=== PATIENT | female | born 1985 ===

== ENCOUNTER 2016-06-17 17:25 | Inpatient (IN) | payer OTHER ==
[2016-06-17 17:25] VITALS: BMI 21.9
[2016-06-17] MEDS ORDERED: Sodium Chloride 0.9% 1,000 ML IV ONE (18:13)
[2016-06-17] MEDS ORDERED: Aspirin 325 mg EC Tablets PO STA (18:13)
--- NOTE | 2016-06-17 18:18 | C.PDOC ---
History Of Present Illness <RahatMarjan L - Last Filed: 06/17/16 19:11> <Latisha Ayala E - Last Filed: 06/17/16 21:57> Patient is a 31 year old female who presents to the ER with a complaint of chest pain since yesterday. Chest pain is described as tightness and worsens with deep breathing. Patient states she took ibuprofen yesterday with no improvement. Patient reports she has had similar episodes in the past. She reports her primary physician Dr. Wharton, referred her to life enrichment specialist Dr Escamilla, who scheduled an echo and stress test this Monday 06/19. Denies fever, cough, sputum, nausea, vomiting, abdominal pain, weakness, or numbness. (Marjan Giang) History Per: Patient History/Exam Limitations: no limitations Onset/Duration Of Symptoms: Days (Yesterday) Current Symptoms Are (Timing): Still Present Quality: Tightness, Pressure Associated Symptoms: Dyspnea. denies: Nausea Exacerbating Factors: Deep Breathing <Marjan Giang - Last Filed: 06/17/16 19:11> <Latisha Ayala E - Last Filed: 06/17/16 21:57> Time Seen by Provider: 06/17/16 18:07 Chief Complaint (Nursing): Chest Pain Past Medical History Reviewed: Historical Data, Nursing Documentation, Vital Signs - Medical History PMH: Anemia Other PMH: Left Kidney cyst Surgical History: Endoscopy Family History: States: No Known Family Hx Denies: IA, CAD - Social History Hx Tobacco Use: No Hx Alcohol Use: Yes (DRINKS EVERY WEEKEND BEER & WINE) Hx Substance Use: No - Immunization History Hx Tetanus Toxoid Vaccination: No Hx Influenza Vaccination: Yes Hx Pneumococcal Vaccination: No <Marjan Giang - Last Filed: 06/17/16 19:11> Vital Signs: Last Vital Signs Temp 98.1 F 06/17/16 21:53 Pulse 64 06/17/16 21:53 Resp 16 06/17/16 21:53 BP 123/54 L 06/17/16 21:53 Pulse Ox 96 06/17/16 21:53 Review Of Systems Constitutional: Negative for: Fever, Chills, Weakness, Malaise Cardiovascular: Positive for: Chest Pain (tightness). Negative for: Palpitations Respiratory: Positive for: Pleuritic Pain Gastrointestinal: Negative for: Nausea, Vomiting, Abdominal Pain Genitourinary: Negative for: Dysuria, Vaginal Bleeding Musculoskeletal: Negative for: Neck Pain Neurological: Negative for: Weakness, Numbness, Headache, Dizziness <RahatTejMarjan L - Last Filed: 06/17/16 19:11> Physical Exam - Physical Exam Appears: Non-toxic, No Acute Distress Skin: Warm, Dry, No Diaphoretic, No Pale Head: Atraumatic, Normacephalic Eye(s): bilateral: Normal Inspection Nose: Normal Oral Mucosa: Moist Neck: Normal ROM Chest: Symmetrical, No Deformity, No Tenderness Cardiovascular: Rhythm Regular, No Murmur Respiratory: No Decreased Breath Sounds, No Accessory Muscle Use, No Rales, No Rhonchi, No Wheezing, No Plerual Rub Gastrointestinal/Abdominal: Bowel Sounds, Soft, No Tenderness, No Distention, No Guarding Back: Normal Inspection, No CVA Tenderness, No Vertebral Tenderness, No Decreased ROM, No Paraspinal Tenderness Extremity: Bilateral: Atraumatic, No Pedal Edema, Normal Color And Temperature, Normal ROM Neurological/Psych: Oriented x3, Normal Speech Gait: Steady <Marjan Giang Antione - Last Filed: 06/17/16 19:11> ED Course And Treatment ECG: Interpreted By Me, Viewed By Me ECG Rhythm: Sinus Rhythm ECG Interpretation: No Acute Changes Rate From EC O2 Sat by Pulse Oximetry: 100 (Room air) Pulse Ox Interpretation: Normal <Marjan Giang - Last Filed: 06/17/16 19:11> - Laboratory Results Result Diagrams: 06/17/16 20:11 06/17/16 20:11 Interpretation Of Abnormal: Mild anemia. Urine POC: Negative Progress Note: Pt was signed out to me at 7pm by Dr. Peraza/ELIGIO Giang to f/ up labs. Reassessment Condition: Improved - Physician Consult Information Physician Contacted: Davy Escamilla (Cardio) Outcome Of Conversation: He wants pt to be admitted for observation and further evaluation. <Latisha Ayala E - Last Filed: 06/17/16 21:57> Medical Decision Making <Marjan Giang - Last Filed: 06/17/16 19:11> <Latisha Ayala E - Last Filed: 06/17/16 21:57> Medical Decision Making: Impression: 31 year old female with chest pain Plan: * EKG * Blood work * CXR * Ecotrin * IV fluids Progress: EKG shows NS at 60bpm with normal axis and no ST-T changes. CXR shows no focal consolidation, significant pleural effusion, or definite pneumothorax identified. [address] Case signed out to Dr Ayala pending labs, re-eval and dispo (Marjan Giang) Disposition - Disposition Disposition Time: 19:11 <Marjan Giang - Last Filed: 06/17/16 19:11> Discussed With .: Rui Wharton Comment: He accepted pt on his service. Doctor Will See Patient In The: Hospital Counseled Patient/Family Regarding: Studies Performed, Diagnosis - Disposition Disposition Time: :57 <Latisha Ayala - Last Filed: 06/17/16 21:57> - Disposition Disposition: HOSPITALIZED Condition: STABLE - Clinical Impression Clinical Impression: Chest pain - Scribe Statement The provider has reviewed the documentation as recorded by the Scribe <Marjan Giang - Last Filed: 06/17/16 19:11> <Latisha Ayala - Last Filed: 06/17/16 21:57> - Scribe Statement Nadeem Heard All medical record entries made by the Scribe were at my direction and personally dictated by me. I have reviewed the chart and agree that the record accurately reflects my personal performance of the history, physical exam, medical decision making, and the department course for this patient. I have also personally directed, reviewed, and agree with the discharge instructions and disposition. (Marjan Giang) Physician Patient Turnover Patient Signed Over To: Latisha Ayala Handoff Comments: pending labs, re-eval and dispo <Marjan Giang - Last Filed: 06/17/16 19:11>
--- NOTE | 2016-06-17 18:48 | RAD ---
HISTORY: chest pain COMPARISON: Chest x-ray performed 11/24/14 TECHNIQUE: Chest PA and lateral FINDINGS: LUNGS: No focal consolidation. Please note that chest x-ray has limited sensitivity for the detection of pulmonary masses. PLEURA: No significant pleural effusion identified. No definite pneumothorax . CARDIOVASCULAR: The cardiomediastinal silhouette appears within normal limits of size. OSSEOUS STRUCTURES: No acute osseous abnormality identified. VISUALIZED UPPER ABDOMEN: Unremarkable. OTHER FINDINGS: None. IMPRESSION: No focal consolidation, significant pleural effusion, or definite pneumothorax identified.
[2016-06-17] MEDS ORDERED: Sodium Chloride 0.9% 1,000 ML ONE (18:51)
[2016-06-17 20:24] LABS: BASO % 0.4 % (0.0-2.0); EOS # 0.1 K/uL (0.0-0.7); EOS % 0.6 % (0.0-4.0); HEMATOCRIT 31.8 % (34.0-47.0); LYMPH # 2.2 K/uL (1.0-4.3); MEAN CORPUSCULAR HEMOGLOBIN 20.4 pg (27.0-31.0); MEAN CORPUSCULAR HGB CONC 30.5 g/dL (33.0-37.0); MEAN PLATELET VOLUME 11.5 fL (7.2-11.7); MONO # 0.6 K/uL (0.0-0.8); MONO % 6.8 % (0.0-10.0); RED CELL DISTRIBUTION WIDTH 17.6 % (11.5-14.5)
[2016-06-17 20:38] LABS: CHLORIDE 101 mmol/L (98-107); POTASSIUM 3.6 mmol/L (3.6-5.2); SODIUM 139 mmol/L (132-148)
[2016-06-17 20:40] LABS: GFR AFRICAN-AMERICAN > 60
[2016-06-17 20:41] LABS: ALB/GLOB RATIO 1.6 (1.0-2.1); ALKALINE PHOSPHATASE 56 U/L (38-126); ALT/SGPT 20 U/L (9-52); AST/SGOT 24 U/L (14-36); BILIRUBIN,TOTAL 0.2 mg/dL (0.2-1.3); BLOOD UREA NITROGEN 15 mg/dL (7-17); CALCIUM 8.6 mg/dl (8.6-10.4); CARBON DIOXIDE 23 mmol/L (22-30); GLUCOSE,RANDOM 88 mg/dL (65-105); TOTAL PROTEIN 7.7 g/dL (6.3-8.3)
[2016-06-17 20:46] LABS: WHITE BLOOD COUNT 9.4 K/uL (4.8-10.8)
[2016-06-17 20:50] LABS: PARTIAL THROMBOPLASTIN TIME 33 SECONDS (21-34)
[2016-06-17 20:57] LABS: RBC URINE < 1 /hpf (0-3); URINE BACTERIA OCC (<OCC); URINE BILIRUBIN NEGATIVE (NEGATIVE); URINE BLOOD NEGATIVE (NEGATIVE); URINE COLOR Colorless (YELLOW); URINE GLUCOSE (UA) NORMAL (Normal); URINE KETONE NEGATIVE (NEGATIVE); URINE LEUKOCYTE ESTERASE NEG Leu/uL (Negative); URINE PROTEIN NEGATIVE (NEGATIVE); URINE UROBILINOGEN NORMAL mg/dL (0.2-1.0); WBC URINE < 1 /hpf (0-5)
[2016-06-17] MEDS: Lactated Ringer's 1,000 ML IV SCH (22:38)
[2016-06-18] MEDS ORDERED: Ferric Sodium Gluconat Complex 62.5 mg/5 ml Vial IVPB SCH ×3 (01:55→21:45)
[2016-06-18] MEDS: Lactated Ringer's 1,000 ML IV SCH ×2 (11:19→20:35)
[2016-06-18] MEDS: Ferric Sodium Gluconat Complex 62.5 mg/5 ml Vial IVPB SCH (11:37)
--- NOTE | 2016-06-18 23:22 | CP.PCM.CON ---
History of Present Illness - History of Present Illness History of Present Illness: Admitted with chest pain For stress test in am Past Patient History - Infectious Disease Hx of Infectious Diseases: None - Tetanus Immunizations Tetanus Immunization: Unknown - Past Medical History & Family History Past Medical History?: Yes - Past Social History Smoking Status: Never Smoked - CARDIAC Hx Cardiac Disorders: No Hx Pacemaker: No - PULMONARY Hx Respiratory Disorders: No - NEUROLOGICAL Hx Neurological Disorder: No Hx Paralysis: No - HEENT Hx HEENT Problems: No Other/Comment: Had Strabismus and had surgery @ 2 years - RENAL Hx Chronic Kidney Disease: No Other/Comment: Hx of 1 cyst in the L kidney - ENDOCRINE/METABOLIC Hx Endocrine Disorders: No - HEMATOLOGICAL/ONCOLOGICAL Hx Blood Disorders: Yes Hx Anemia: Yes - INTEGUMENTARY Hx Dermatological Problems: No - MUSCULOSKELETAL/RHEUMATOLOGICAL Hx Musculoskeletal Disorders: Yes Hx Falls: No Other/Comment: BACKPAIN - GASTROINTESTINAL Hx Gastrointestinal Disorders: Yes Hx Constipation: Yes Hx Gastritis: Yes - GENITOURINARY/GYNECOLOGICAL Hx Genitourinary Disorders: Yes Other/Comment: ovarian cyst - PSYCHIATRIC Hx Psychophysiologic Disorder: No Hx Substance Use: No - SURGICAL HISTORY Hx Surgeries: Yes (ENDOSCOPY, EYE SURGERY) Other/Comment: EYE SURGERY WHEN SHE WAS A BABY - ANESTHESIA Hx Anesthesia: Yes Hx Anesthesia Reactions: No Hx Malignant Hyperthermia: No Has any member of the family had a problem w/ anesthesia?: No Meds Allergies/Adverse Reactions: Allergies Allergy/AdvReac Type Severity Reaction Status Date / Time No Known Allergies Allergy Verified 06/17/16 17:34 - Medications Medications: Current Medications Acetaminophen (Tylenol 325mg Tab) 650 mg PO Q6 PRN PRN Reason: headache Last Admin: 06/18/16 20:48 Dose: 650 mg Aspirin (Aspirin Chewable) 81 mg PO DAILY [facility] Last Admin: 06/18/16 11:11 Dose: 81 mg Ferric Sodium Gluconate Complex (Ferrlecit) 125 mg IVPB DAILY [facility] Stop: 06/26/16 10:01 Last Admin: 06/18/16 11:37 Dose: 125 mg Lactated Ringer's (Lactated Ringer's) 1,000 mls @ 100 mls/hr IV .Q10H [facility] Last Admin: 06/18/16 20:35 Dose: Not Given Pantoprazole Sodium (Protonix Inj) 40 mg IVP DAILY [facility] Last Admin: 06/18/16 11:11 Dose: 40 mg Pneumococcal Polyvalent Vaccine (Pneumovax 23 Vaccine) 0.5 ml IM .ONCE ONE Stop: 06/20/16 14:01 Results - Vital Signs Recent Vital Signs: Last Vital Signs Temp 98.4 F 06/18/16 15:14 Pulse 73 06/18/16 15:14 Resp 20 06/18/16 15:14 BP 112/65 06/18/16 15:14 Pulse Ox 100 06/18/16 15:14 - Labs Result Diagrams: 06/17/16 20:11 06/17/16 20:11
[2016-06-19] MEDS: Lactated Ringer's 1,000 ML IV SCH (00:10)
[2016-06-19 06:31] LABS: BASO % 0.8 % (0.0-2.0); EOS # 0.1 K/uL (0.0-0.7); EOS % 2.2 % (0.0-4.0); LYMPH # 2.4 K/uL (1.0-4.3); LYMPH % 45.2 % (20.0-40.0); MEAN CELL VOLUME 66.5 fL (81.0-99.0); MEAN CORPUSCULAR HEMOGLOBIN 20.2 pg (27.0-31.0); MEAN CORPUSCULAR HGB CONC 30.3 g/dL (33.0-37.0); MEAN PLATELET VOLUME 11.5 fL (7.2-11.7); MONO # 0.5 K/uL (0.0-0.8); RED CELL DISTRIBUTION WIDTH 17.8 % (11.5-14.5); WHITE BLOOD COUNT 5.3 K/uL (4.8-10.8)
[2016-06-19 06:42] LABS: CHLORIDE 102 mmol/L (98-107); POTASSIUM 3.8 mmol/L (3.6-5.2); SODIUM 135 mmol/L (132-148)
[2016-06-19 06:44] LABS: GFR AFRICAN-AMERICAN > 60
[2016-06-19 06:45] LABS: ALB/GLOB RATIO 1.3 (1.0-2.1); ALKALINE PHOSPHATASE 47 U/L (38-126); ALT/SGPT 18 U/L (9-52); AST/SGOT 16 U/L (14-36); BILIRUBIN,TOTAL 0.4 mg/dL (0.2-1.3); BLOOD UREA NITROGEN 11 mg/dL (7-17); CARBON DIOXIDE 24 mmol/L (22-30); GLUCOSE,RANDOM 91 mg/dL (65-105); TOTAL PROTEIN 6.3 g/dL (6.3-8.3)
[2016-06-19 06:46] LABS: CALCIUM 7.8 mg/dl (8.6-10.4)
--- NOTE | 2016-06-19 09:53 | CP.PCM.HP ---
History of Present Illness - History of Present Illness History of Present Illness: Chief complaint: Chest pain History present illness: 31-year-old female with a history of anemia, fibromyalgia came to the office with increasing chest pain. Patient came to the emergency room because of the worsening pain. Initial evaluation was negative, because of the chest pain, it was decided to admit the patient. Patient also has a pain over the left side of the chest, radiating to the back as well as the left upper extremities. Also associated with the some sweating and palpitation. She did not have any nausea vomiting. Present on Admission - Present on Admission Any Indicators Present on Admission: No History of DVT/PE: No History of Uncontrolled Diabetes: No Urinary Catheter: No Decubitus Ulcer Present: No Review of Systems - Review of Systems All systems: reviewed and no additional remarkable complaints except Review of Systems: Patient currently having increasing chest discomfort. Radiating to the left chest. No sweating. Associate with the no nausea vomiting. Denies any headache Past Patient History - Infectious Disease Hx of Infectious Diseases: None - Tetanus Immunizations Tetanus Immunization: Unknown - Past Medical History & Family History Past Medical History?: Yes - Past Social History Smoking Status: Never Smoked - CARDIAC Hx Cardiac Disorders: No Hx Pacemaker: No - PULMONARY Hx Respiratory Disorders: No - NEUROLOGICAL Hx Neurological Disorder: No Hx Paralysis: No - HEENT Hx HEENT Problems: No Other/Comment: Had Strabismus and had surgery @ 2 years - RENAL Hx Chronic Kidney Disease: No Other/Comment: Hx of 1 cyst in the L kidney - ENDOCRINE/METABOLIC Hx Endocrine Disorders: No - HEMATOLOGICAL/ONCOLOGICAL Hx Blood Disorders: Yes Hx Anemia: Yes - INTEGUMENTARY Hx Dermatological Problems: No - MUSCULOSKELETAL/RHEUMATOLOGICAL Hx Musculoskeletal Disorders: Yes Hx Falls: No Other/Comment: BACKPAIN - GASTROINTESTINAL Hx Gastrointestinal Disorders: Yes Hx Constipation: Yes Hx Gastritis: Yes - GENITOURINARY/GYNECOLOGICAL Hx Genitourinary Disorders: Yes Other/Comment: ovarian cyst - PSYCHIATRIC Hx Psychophysiologic Disorder: No Hx Substance Use: No - SURGICAL HISTORY Hx Surgeries: Yes (ENDOSCOPY, EYE SURGERY) Other/Comment: EYE SURGERY WHEN SHE WAS A BABY - ANESTHESIA Hx Anesthesia: Yes Hx Anesthesia Reactions: No Hx Malignant Hyperthermia: No Has any member of the family had a problem w/ anesthesia?: No Meds Allergies/Adverse Reactions: Allergies Allergy/AdvReac Type Severity Reaction Status Date / Time No Known Allergies Allergy Verified 06/17/16 17:34 Results - Vital Signs Recent Vital Signs: Last Vital Signs Temp 98.2 F 06/19/16 07:00 Pulse 59 L 06/19/16 07:45 Resp 18 06/19/16 07:00 BP 107/65 06/19/16 07:00 Pulse Ox 99 06/19/16 07:00 - Labs Result Diagrams: 06/19/16 21:36 06/19/16 06:21 Labs: Laboratory Results - last 24 hr 06/19/16 06:21 WBC 5.3 RBC 4.36 Hgb 8.8 L Hct 29.0 L MCV 66.5 L MCH 20.2 L MCHC 30.3 L RDW 17.8 H Plt Count 187 MPV 11.5 Neut % (Auto) 41.8 L Lymph % (Auto) 45.2 H [place] % (Auto) 10.0 Eos % (Auto) 2.2 Baso % (Auto) 0.8 Neut # 2.2 Lymph # 2.4 [place] # 0.5 Eos # 0.1 Baso # 0.0 Sodium 135 Potassium 3.8 Chloride 102 Carbon Dioxide 24 Anion Gap 14 BUN 11 Creatinine 0.6 L Est GFR ( Amer) > 60 Est GFR (Non-Af Amer) > 60 Random Glucose 91 Calcium 7.8 L Total Bilirubin 0.4 AST 16 ALT 18 Alkaline Phosphatase 47 Total Protein 6.3 Albumin 3.6 Globulin 2.7 Albumin/Globulin Ratio 1.3 Assessment & Plan (1) Anemia Assessment and Plan: 31-year-old female with history of anemia now admitted to the hospital with ongoing chest pain. Most likely pleuritic and musculoskeletal in origin. Given the anemia, family history unclear chest pain. I suggested the patient to stay in the hospital, monitor the cardiac enzymes. We will get the cardiology evaluation. We'll treat the anemia most likely with the iron infusion. Severe anemia most likely secondary to iron deficiency. We'll follow the patient Status: Acute (2) Chest pain Status: Acute
[2016-06-19] MEDS: Ferric Sodium Gluconat Complex 62.5 mg/5 ml Vial IVPB SCH ×2 (10:00→13:04)
--- NOTE | 2016-06-19 12:42 | CARD ---
APPROVED REPORT EXAM: Two-dimensional and M-mode echocardiogram with Doppler and color Doppler. Other Information Quality : GoodRhythm : INDICATION Chest Pain M-Mode DIMENSIONS RVDd1.54 (2.1-3.2cm)Left Atrium (MM)3.15 (2.5-4.0cm) IVSd0.78 (0.7-1.1cm)Aortic Root2.71 (2.2-3.7cm) LVDd5.05 (4.0-5.6cm)Aortic Cusp Exc.1.51 (1.5-2.0cm) PWd0.89 (0.7-1.1cm)FS (%) 39 % LVDs3.10 (2.0-3.8cm)LVEF (%)69 (>50%) Mitral Valve MV E Akjekraz76.9cm/sMV A Heekjbpx22.9cm/sE/A ratio1.2 TDI E/Lateral E'0.0E/Medial E'0.0 Tricuspid Valve TR Peak [id number]/sTR Peak Gr.[id number] LEFT VENTRICLE The left ventricle is normal size. There is normal left ventricular wall thickness. The left ventricular function is normal. The left ventricular ejection fraction is within the normal range. There is normal LV segmental wall motion. The left ventricular diastolic function is normal. No left ventricle thrombus noted on this study. There is no ventricular septal defect visualized. There is no left ventricular aneurysm. There is no mass noted in the left ventricle. RIGHT VENTRICLE The right ventricle is normal size. There is normal right ventricular wall thickness. The right ventricular systolic function is normal. ATRIA The left atrium size is normal. The right atrium size is normal. AORTIC VALVE The aortic valve is normal in structure. No aortic regurgitation is present. There is no aortic valvular stenosis. There is no aortic valvular vegetation. MITRAL VALVE The mitral valve is normal in structure. There is no mitral valve stenosis. There is no mitral valve regurgitation noted. TRICUSPID VALVE The tricuspid valve is normal in structure. There is no tricuspid valve regurgitation noted. PULMONIC VALVE The pulmonary valve is normal in structure. There is no pulmonic valvular regurgitation. GREAT VESSELS The aortic root is normal in size. The ascending aorta is normal in size. The pulmonary artery is normal. The IVC is normal in size and collapses >50% with inspiration. PERICARDIAL EFFUSION There is no pericardial effusion. <Conclusion> NORMAL STUDY. LVEF IS 70%.
[2016-06-19] MEDS ORDERED: Tramadol 25 mg PO ONE ×2 (13:35)
[2016-06-19 17:21] VITALS: PULSE 74; RESP 20
--- NOTE | 2016-06-19 18:19 | CP.PCM.PN ---
Subjective - Date & Time of Evaluation Date of Evaluation: 06/19/16 Time of Evaluation: 18:16 - Subjective Subjective: Patient s/p Exercise Nuclear Stress test Stress Test Result: Normal with Normal EF ECHO: Normal study Conclusion: Non cardiac chest pain. Medical management Objective - Vital Signs/Intake and Output Vital Signs (last 24 hours): Temp Pulse Resp BP Pulse Ox 98.1 F 74 20 103/62 98 06/19/16 15:06 06/19/16 15:06 06/19/16 15:06 06/19/16 15:06 06/19/16 15:06 Intake and Output: 06/19/16 06/19/16 06:59 18:59 Intake Total 1710 200 Balance 1710 200 - Medications Medications: Current Medications Acetaminophen (Tylenol 325mg Tab) 650 mg PO Q6 PRN PRN Reason: headache Last Admin: 06/19/16 16:09 Dose: 650 mg Aspirin (Aspirin Chewable) 81 mg PO DAILY [facility] Last Admin: 06/19/16 13:57 Dose: 81 mg Ferric Sodium Gluconate Complex (Ferrlecit) 125 mg IVPB DAILY [facility] Stop: 06/26/16 10:01 Last Admin: 06/19/16 13:04 Dose: 125 mg Pantoprazole Sodium (Protonix Inj) 40 mg IVP DAILY [facility] Last Admin: 06/19/16 13:06 Dose: 40 mg Pneumococcal Polyvalent Vaccine (Pneumovax 23 Vaccine) 0.5 ml IM .ONCE ONE Stop: 06/20/16 14:01 - Labs Labs: 06/19/16 06:21 06/19/16 06:21 PT 11.2 SECONDS (9.7-12.2) 06/17/16 20:11 INR 1.0 06/17/16 20:11 APTT 33 SECONDS (21-34) 06/17/16 20:11
[2016-06-19 21:39] LABS: BASO # 0.1 K/uL (0.0-0.2); BASO % 0.9 % (0.0-2.0); EOS # 0.1 K/uL (0.0-0.7); EOS % 1.4 % (0.0-4.0); HEMATOCRIT 30.9 % (34.0-47.0); LYMPH # 2.5 K/uL (1.0-4.3); LYMPH % 38.5 % (20.0-40.0); MEAN CELL VOLUME 66.6 fL (81.0-99.0); MEAN CORPUSCULAR HEMOGLOBIN 20.3 pg (27.0-31.0); MEAN CORPUSCULAR HGB CONC 30.4 g/dL (33.0-37.0); MEAN PLATELET VOLUME 10.2 fL (7.2-11.7); MONO # 0.7 K/uL (0.0-0.8); MONO % 10.2 % (0.0-10.0); NRBC % 0.1 % (0.0-2.0); RED CELL DISTRIBUTION WIDTH 17.7 % (11.5-14.5); WHITE BLOOD COUNT 6.5 K/uL (4.8-10.8)
[2016-06-20 08:56] VITALS: BP 109/66; TEMP 98.5; O2SAT 98
[2016-06-20] MEDS: Ferric Sodium Gluconat Complex 62.5 mg/5 ml Vial IVPB SCH (09:44)
[2016-06-20] MEDS ORDERED: Pneumococcal 23-Valent Vaccine IM ONE (14:00)
--- NOTE | 2016-06-22 22:33 | CARD ---
APPROVED REPORT Protocol: NNAMDI Test Type: Stress Nuclear Test Indications: CHEST PAIN Medications: lis scan Medical History: CHEST PAIN Target HR: 189 bpm Resting ECG: normal Resting Heart Rate: 82 bpm Resting Blood Pressure: 110/60mmHg submaximum (85%): 161 bpm TEST SUMMARY [id number]:020.00.01.0./.0. PRETESTWARM-UP13:[id number]/60.0. EXERCISESTAGE 101:[id number]/60.0. EXERCISESTAGE 201:132.512.07.0104/.0. EXERCISESTAGE 303:[id number]/60.0. EXERCISESTAGE 402:[id number]/60.0. WHPUTSHY58:[id number]/60.0. POST EXERCISE Reason for Termination: Target heart rate achieved Target HR: No Max HR: 151 bpm 80% of Maximum Predicted HR: 189 bpm Exercise duration: 08:15 min:sec, 4 Stage Exercise capacity: 13.4METs Max Blood Pressure: 150/60mmHg Blood Pressure response to exercise: normal resting BP - appropriate response Heart Rate response to exercise: appropriate Chest Pain: No, none Angina index: 0 Arrhythmia: No, none ST Change: No, none Deviation: 0 mm INTERPRETATION Stress EKG Conclusion: Nuclear reports to follow EXAM: Myocardial Perfusion REST/STRESS Imaging Protocol The imaging protocol used to acquire images was Rest Tc-99m/stress Tc-99m 1 day Rest Spect myocardial perfusion imaging was performed in supine position 45 minutes following the injection of 12.9 mCi of Tc-99 Myoview. Gated Stress Spect was performed 45 minutes after intravenous 32.5 mCi Tc-99 Myoview injection. The images were gated to evaluate regional wall motion and calculate ventricular ejection fraction.Images were reconstructed using backfilter projection method in short horizontal and verticle long axis. Spect slices were generated. RESTING DATA EDV92.00mxNY8.70L/min ESV31.00mlMyocardial Emyy711.00g Av. Heart Rate61.00bpm EF66.00% STRESS DATA EDV93.89dlPO6.60L/min ESV29.00mlMyocardial Jqce191.00g EF69.00% Regional WT score at stress:0.00 Regional WM score at stress:0.00 Summed WT score at stress:0.00 Av. Heart Rate71.00bpmSummed WM score at stress:0.00 LV Perf. Quant 17 Seg. SSS0.00 17 Seg. SRS0.00 17 Seg. SDS0.00 Stress Defect Extent (% LAD)0.00Rest Defect Extent (% LAD)0.00Rev. Defect Extent (% LAD)0.00 Stress Defect Extent (% LCX)0.00Rest Defect Extent (% LCX)0.00Rev. Defect Extent (% LCX)0.00 Stress Defect Extent (% RCA)0.00Rest Defect Extent (% RCA)0.00Rev. Defect Extent (% RCA)0.00 Stress Defect Extent (% AKHIL)0.00Rest Defect Extent (% AKHIL)0.00Rev. Defect Extent (% AKHIL)0.00 Other Information Quality:Good Overall Exercise Capacity: Excellent IMPRESSION Normal Myocardial Perfusion exercise stress study Left Ventricle LV Size/Shape: The left ventricle is normal size. LV Function:Left ventricle systolic function is normal. The Ejection Fraction is 65-70%. Metabolism/Perfusion There are no defects. Conclusion 1. Normal exercise nuclear stress test
--- NOTE | 2016-06-29 23:25 | CARD ---
APPROVED REPORT EKG Measurement Heart [id number] IL 138P61 [id number] <Conclusion> Normal sinus rhythm with sinus arrhythmia Normal ECG
--- NOTE | 2016-07-20 11:32 | CP.PCM.PN ---
Subjective - Date & Time of Evaluation Date of Evaluation: 06/19/16 Time of Evaluation: 11:32 - Subjective Subjective: Patient is still having chest pain. Underwent a stress test. Spoke to the hydrodynamicist. Final testis is pending Platelet stable otherwise. Objective - Vital Signs/Intake and Output Vital Signs (last 24 hours): Temp Pulse Resp BP Pulse Ox 98.5 F 74 20 109/66 98 06/20/16 07:00 06/20/16 08:20 06/20/16 07:00 06/20/16 07:00 06/20/16 07:00 Intake and Output: Vital signs reviewed No neck vein distention noted Chest good air entry bilaterally, no wheezing or rales noted CVS regular heart sound, no murmur noted Abdomen soft, nontender. Extremities no pedal edema HAND INSPECTOR alert awake oriented 3, no functional neurological deficit - Labs Labs: 06/19/16 21:36 06/19/16 06:21 PT 11.2 SECONDS (9.7-12.2) 06/17/16 20:11 INR 1.0 06/17/16 20:11 APTT 33 SECONDS (21-34) 06/17/16 20:11 Assessment and Plan (1) Anemia Assessment & Plan: nemia receiving iron infusion. Chest pain most likely nonspecific. follow-up stress test. Status: Acute (2) Chest pain Status: Acute
--- NOTE | 2016-07-20 11:34 | CP.PCM.DIS ---
Provider - Provider Date of Admission: 06/18/16 16:32 Attending physician: Rui Wharton MD Time Spent in preparation of Discharge (in minutes): 45 Diagnosis - Discharge Diagnosis (1) Anemia Status: Acute (2) Chest pain Status: Acute Hospital Course - Lab Results Lab Results: Most Recent Lab Values WBC 6.5 K/uL (4.8-10.8) 06/19/16 21:36 RBC 4.63 Mil/uL (3.80-5.20) 06/19/16 21:36 Hgb 9.4 g/dL (11.0-16.0) L 06/19/16 21:36 Hct 30.9 % (34.0-47.0) L 06/19/16 21:36 MCV 66.6 fL (81.0-99.0) L 06/19/16 21:36 MCH 20.3 pg (27.0-31.0) L 06/19/16 21:36 MCHC 30.4 g/dL (33.0-37.0) L 06/19/16 21:36 RDW 17.7 % (11.5-14.5) H 06/19/16 21:36 Plt Count 194 K/uL (130-400) 06/19/16 21:36 MPV 10.2 fL (7.2-11.7) 06/19/16 21:36 Neut % (Auto) 49.0 % (50.0-75.0) L 06/19/16 21:36 Lymph % (Auto) 38.5 % (20.0-40.0) 06/19/16 21:36 [place] % (Auto) 10.2 % (0.0-10.0) H 06/19/16 21:36 Eos % (Auto) 1.4 % (0.0-4.0) 06/19/16 21:36 Baso % (Auto) 0.9 % (0.0-2.0) 06/19/16 21:36 Neut # 3.2 K/uL (1.8-7.0) 06/19/16 21:36 Lymph # 2.5 K/uL (1.0-4.3) 06/19/16 21:36 [place] # 0.7 K/uL (0.0-0.8) 06/19/16 21:36 Eos # 0.1 K/uL (0.0-0.7) 06/19/16 21:36 Baso # 0.1 K/uL (0.0-0.2) 06/19/16 21:36 PT 11.2 SECONDS (9.7-12.2) 06/17/16 20:11 INR 1.0 06/17/16 20:11 APTT 33 SECONDS (21-34) 06/17/16 20:11 D-Dimer, Quantitative < 200 ng/mlDDU (0-243) 06/17/16 20:11 Sodium 135 mmol/L (132-148) 06/19/16 06:21 Potassium 3.8 mmol/L (3.6-5.2) 06/19/16 06:21 Chloride 102 mmol/L (98-107) 06/19/16 06:21 Carbon Dioxide 24 mmol/L (22-30) 06/19/16 06:21 Anion Gap 14 (10-20) 06/19/16 06:21 BUN 11 mg/dL (7-17) 06/19/16 06:21 Creatinine 0.6 MG/DL (0.7-1.2) L 06/19/16 06:21 Est GFR ( Amer) > 60 06/19/16 06:21 Est GFR (Non-Af Amer) > 60 06/19/16 06:21 Random Glucose 91 mg/dL (65-105) 06/19/16 06:21 Calcium 7.8 mg/dl (8.6-10.4) L 06/19/16 06:21 Total Bilirubin 0.4 mg/dL (0.2-1.3) 06/19/16 06:21 AST 16 U/L (14-36) 06/19/16 06:21 ALT 18 U/L (9-52) 06/19/16 06:21 Alkaline Phosphatase 47 U/L (38-126) 06/19/16 06:21 Total Creatine Kinase 86 U/L (30-135) 06/17/16 20:11 CK-MB (Mass) 0.32 ng/mL (0.0-3.38) 06/17/16 20:11 Troponin I, Quant < 0.0120 ng/mL (0.00-0.120) 06/17/16 20:11 Total Protein 6.3 g/dL (6.3-8.3) 06/19/16 06:21 Albumin 3.6 g/dL (3.5-5.0) 06/19/16 06:21 Globulin 2.7 gm/dL (2.2-3.9) 06/19/16 06:21 Albumin/Globulin Ratio 1.3 (1.0-2.1) 06/19/16 06:21 Urine Color Colorless (YELLOW) 06/17/16 20:11 Urine Clarity Clear (Clear) 06/17/16 20:11 Urine pH 6.0 (5.0-8.0) 06/17/16 20:11 Ur Specific Bertram 1.003 (1.003-1.030) 06/17/16 20:11 Urine Protein Negative mg/dL (NEGATIVE) 06/17/16 20:11 Urine Glucose (UA) Normal mg/dL (Normal) 06/17/16 20:11 Urine Ketones Negative mg/dL (NEGATIVE) 06/17/16 20:11 Urine Blood Negative (NEGATIVE) 06/17/16 20:11 Urine Nitrate Negative (NEGATIVE) 06/17/16 20:11 Urine Bilirubin Negative (NEGATIVE) 06/17/16 20:11 Urine Urobilinogen Normal mg/dL (0.2-1.0) 06/17/16 20:11 Ur Leukocyte Esterase Neg Dalton/uL (Negative) 06/17/16 20:11 Urine WBC (Auto) < 1 /hpf (0-5) 06/17/16 20:11 Urine RBC (Auto) < 1 /hpf (0-3) 06/17/16 20:11 Urine Bacteria Occ (<OCC) H 06/17/16 20:11 Urine HCG, Qual Negative (NEGATIVE) 06/17/16 20:11 - Hospital Course Hospital Course: 31-year-old female with history of anemia admitted to the hospital with the chest pain. Patient had a severe anemia. Ongoing chest pain. Radiated to the left upper extend the. Cardiology evaluation was called. Stress test was done, showing no evidence of any ischemia. Received IV and infusion intravenously. Clinical stable. She will be discharged home, she'll follow-up as an outpatient. Final diagnosis severe anemia iron deficiency most likely Chest pain most likely atypical. Will follow the patient Discharge Plan - Follow Up Plan Condition: STABLE Disposition: HOME/ ROUTINE Instructions: Chest Pain (DC) Additional Instructions: Follow up with your primary Dr. as needed. Referrals: Rui Wharton MD [Staff Provider] -
== END 2016-06-20 12:30 | disposition home or self-care (01) | DRG 313 ==
LOC: C.ER 17:25 → C.9E 21:58 → C.6T 06-18 00:01 → OBSVTOIN 06-18 16:32
PROVIDERS: ADMIT Internal Medicine; ATTEND Internal Medicine
DX: R07.89 Other chest pain (principal); F10.10 Alcohol abuse, uncomplicated; Z87.19 Personal history of other diseases of the digestive system; Z98.890 Other specified postprocedural states; Z87.42 Personal history of other diseases of the female genital tract

== ENCOUNTER 2017-05-18 16:58 | Emergency (ER) | payer OTHER ==
[2017-05-18] MEDS ORDERED: Alum-Mag Hydrox-Simethicone Susp (30 mL) PO STA (17:23)
[2017-05-18 17:24] VITALS: RESP 18; TEMP 98
[2017-05-18 17:51] LABS: BASO % 0.4 % (0.0-2.0); EOS # 0.1 K/uL (0.0-0.7); EOS % 1.4 % (0.0-4.0); HEMOGLOBIN 9.3 g/dL (11.0-16.0); LYMPH # 2.1 K/uL (1.0-4.3); LYMPH % 30.7 % (20.0-40.0); MEAN CELL VOLUME 69.4 fL (81.0-99.0); MEAN CORPUSCULAR HEMOGLOBIN 21.5 pg (27.0-31.0); MEAN PLATELET VOLUME 9.9 fL (7.2-11.7); MONO # 0.5 K/uL (0.0-0.8); MONO % 7.7 % (0.0-10.0); NEUT # 4.2 K/uL (1.8-7.0); NEUT % 59.8 % (50.0-75.0); RBC 4.31 Mil/uL (3.80-5.20); RED CELL DISTRIBUTION WIDTH 17.1 % (11.5-14.5)
[2017-05-18] MEDS ORDERED: Alum-Mag Hydrox-Simethicone Susp (30 mL) ONE (17:55)
[2017-05-18 17:58] LABS: HCG,QUALITATIVE URINE NEGATIVE (NEGATIVE)
[2017-05-18 18:00] LABS: SQUAMOUS EPITHIAL 3 /hpf (0-5); URINE BACTERIA RARE (<OCC); URINE BILIRUBIN NEGATIVE (NEGATIVE); URINE BLOOD NEGATIVE (NEGATIVE); URINE CLARITY Hazy (Clear); URINE COLOR Yellow (YELLOW); URINE GLUCOSE (UA) NORMAL (Normal); URINE LEUKOCYTE ESTERASE NEG Leu/uL (Negative); URINE PROTEIN NEGATIVE (NEGATIVE); URINE UROBILINOGEN NORMAL mg/dL (0.2-1.0)
[2017-05-18 18:09] LABS: ALB/GLOB RATIO 1.3 (1.0-2.1); ALBUMIN 4.2 g/dL (3.5-5.0); ALT/SGPT 18 U/L (9-52); AST/SGOT 16 U/L (14-36); BLOOD UREA NITROGEN 12 mg/dL (7-17); CALCIUM 8.1 mg/dl (8.6-10.4); GFR AFRICAN-AMERICAN > 60; GFR NON-AFRICAN AMERICAN > 60; LIPASE 82 U/L (23-300)
[2017-05-18 18:20] VITALS: BMI 22.4
--- NOTE | 2017-05-18 18:31 | C.PDOC ---
History Of Present Illness 31yo female, with history of anemia and anxiety, presents to ED with complaints of epigastric pain which started 2 days ago. Patient states 4 days ago, she strained her back while at the gym and the next day, she took 2 tabs of Motrin 250mg (?), and two hours later took 2 tabs of Naproxen 500 mg. Then, two hours after that, patient again took 2 tabs of Motrin 250mg (?) and two hours later took 2 tabs of Naproxen 500 mg. For the last two days, patient has been having intermittent epigastric pain; she reports a history of similar episodes 2+ years ago. Patient had an endoscopy with Dr. David in 2016 which showed gastritis. Patient states she took Zantac and Mylanta with transient relief of symptoms. She denies any fever, complaints, vomiting, diarrhea, bloody or dark stools. Time Seen by Provider: 05/18/17 17:11 Chief Complaint (Nursing): Abdominal Pain History Per: Patient History/Exam Limitations: no limitations Onset/Duration Of Symptoms: Days Current Symptoms Are (Timing): Still Present Location Of Pain/Discomfort: Epigastric Associated Symptoms: denies: Nausea, Vomiting Past Medical History Reviewed: Historical Data, Nursing Documentation, Vital Signs Vital Signs: Last Vital Signs Temp 98 F 05/18/17 17:18 Pulse 75 05/18/17 18:44 Resp 18 05/18/17 18:44 BP 132/68 05/18/17 18:44 Pulse Ox 100 05/18/17 20:29 - Medical History PMH: Anemia, Anxiety, Gastritis Denies: Chronic Kidney Disease Surgical History: Endoscopy Denies: Pacemaker Family History: Denies: [place], CAD - Social History Hx Tobacco Use: No Hx Alcohol Use: Yes (Socially) Hx Substance Use: No - Immunization History Hx Tetanus Toxoid Vaccination: No Hx Influenza Vaccination: Yes Hx Pneumococcal Vaccination: No Review Of Systems Except As Marked, All Systems Reviewed And Found Negative. Constitutional: Negative for: Fever, Chills Gastrointestinal: Positive for: Abdominal Pain. Negative for: Nausea, Vomiting , Melena, Hematochezia Physical Exam - Physical Exam Appears: Well, Non-toxic, No Acute Distress Skin: Normal Color Head: Atraumatic, Normacephalic Eye(s): bilateral: Normal Inspection, EOMI Nose: Normal Oral Mucosa: Moist Neck: Normal ROM, Supple Chest: Symmetrical Cardiovascular: Rhythm Regular Respiratory: Normal Breath Sounds Gastrointestinal/Abdominal: Soft, Tenderness (epigastric) Rectal: Other (patient offered rectal exam by Dr. Harper upon her evaluation and patient refused.) Back: No CVA Tenderness, No Vertebral Tenderness Extremity: Normal ROM, No Deformity Neurological/Psych: Oriented x3, Normal Speech, Normal Cognition ED Course And Treatment - Laboratory Results Result Diagrams: 05/18/17 17:48 05/18/17 17:48 O2 Sat by Pulse Oximetry: 100 (RA) Pulse Ox Interpretation: Normal Progress Note: Labs reviewed and within normal limits. Case discussed with Dr. Wharton who recommendsdischarge with protonix. He will follow up with patient in his office in 2 days. Patient was seen and evaluated by Dr. Harper in the ER , agreed upon plan and treatment. Disposition - Disposition Referrals: Rui Wharton MD [Staff Provider] - Cooper David MD [Staff Provider] - Disposition: HOME/ ROUTINE Disposition Time: 18:28 Condition: STABLE Additional Instructions: Follow up with your PMD in 2 days. Return to ER if symptoms persist or worsen. Prescriptions: Pantoprazole Sodium [Protonix] 20 mg PO DAILY #20 ect Instructions: Gastritis Forms: [facility] (Salvadorean) - Clinical Impression Clinical Impression: Gastritis - PA / AQUATICS COORDINATOR / Resident Statement MD/DO has reviewed & agrees with the documentation as recorded. - Scribe Statement The provider has reviewed the documentation as recorded by the Scribe (Kerry Gamez) Provider Attestation: All medical record entries made by the Scribe were at my direction and personally dictated by me. I have reviewed the chart and agree that the record accurately reflects my personal performance of the history, physical exam, medical decision making, and the department course for this patient. I have also personally directed, reviewed, and agree with the discharge instructions and disposition.
[2017-05-18 18:46] VITALS: BP 132/68; PULSE 75
[2017-05-18 20:21] VITALS: O2SAT 100
== END 2017-05-18 18:45 | disposition home or self-care (01) ==
LOC: C.ER 16:58
DX: K29.70 Gastritis, unspecified, without bleeding (principal); D64.9 Anemia, unspecified
CPT/HCPCS: 80053; 81001; 83690; 84703; 85025; 96374; 99284; C9113

== ENCOUNTER 2017-08-26 06:53 | Day surgery (SDC) | payer OTHER ==
[2017-08-06 11:10] VITALS: BMI 22.6
[2017-08-26 07:17] VITALS: O2SAT 100
[2017-08-26] MEDS ORDERED: Iodixanol 320 MG/ML 100 ML BOTTLE IV ONE (07:49)
[2017-08-26] MEDS ORDERED: Propofol 10 mg/ml Inj (20 ML) ONE (08:18)
[2017-08-26] MEDS ORDERED: Lactated Ringer's 500 ML IV ONE (08:30)
[2017-08-26 09:02] VITALS: TEMP 98.9
[2017-08-26 09:34] VITALS: BP 107/63; PULSE 66; RESP 14
== END 2017-08-26 09:45 | disposition home or self-care (01) ==
LOC: C.ENDO 06:53
PROVIDERS: ATTEND Internal Medicine Gastroenterology
DX: R10.13 Epigastric pain (principal); K29.50 Unspecified chronic gastritis without bleeding
CPT/HCPCS: 43239; 84703; 88305; 88313; 88342; J2001; J2704; J3010; J7120; Q9967

== ENCOUNTER 2017-08-30 07:46 | Emergency (ER) | payer OTHER ==
[2017-08-30 07:46] VITALS: BMI 22.6
--- NOTE | 2017-08-30 07:51 | C.PDOC ---
History Of Present Illness The patient reports that she injured the left hand while playing volleyball 2 days ago. The patient reports that she hit the hand against the pole and has been having persistent pain since. Denies other injuries, numbness, weakness, rash. Time Seen by Provider: 08/30/17 07:51 History Per: Patient History/Exam Limitations: no limitations Onset/Duration Of Symptoms: Persistent Current Symptoms Are (Timing): Still Present Quality: "Pain" Severity: Mild Pain Scale Rating Of: 6 Exacerbating Factor(s): Strenuous Use Of Affected Area, Movement Recent travel outside of the [place]: No Past Medical History Reviewed: Historical Data, Nursing Documentation, Vital Signs Vital Signs: Last Vital Signs Temp 98.6 F 08/30/17 07:53 Pulse 76 08/30/17 07:53 Resp 18 08/30/17 07:53 BP 148/90 08/30/17 07:53 Pulse Ox 100 08/30/17 08:43 - Medical History PMH: Anemia, Anxiety, Gastritis Denies: Chronic Kidney Disease Surgical History: Endoscopy Denies: Pacemaker Family History: Denies: [place], CAD - Social History Hx Tobacco Use: No Hx Alcohol Use: Yes (Socially) Hx Substance Use: No - Immunization History Hx Tetanus Toxoid Vaccination: No Hx Influenza Vaccination: Yes Hx Pneumococcal Vaccination: No Review Of Systems Except As Marked, All Systems Reviewed And Found Negative. Physical Exam - Physical Exam Appears: Non-toxic, No Acute Distress Skin: Normal Color, Warm, No Rash Head: Atraumatic, Normacephalic Eye(s): bilateral: Normal Inspection Oral Mucosa: Moist Neck: Normal ROM, Supple Chest: Symmetrical Respiratory: No Accessory Muscle Use Extremity: Capillary Refill (< 2 sec), No Deformity, Other ((+) mild swelling and tenderness to the left lateral 5th metacarpal bones. Able to flex and extend fingers and wrist) Extremity: Bilateral: Normal Color And Temperature Pulses: Left Radial: Normal, Right Radial: Normal Neurological/Psych: Oriented x3, Normal Speech, Normal Motor, Normal Sensation Gait: Steady ED Course And Treatment O2 Sat by Pulse Oximetry: 100 (on RA) Pulse Ox Interpretation: Normal Medical Decision Making Medical Decision Making: The xrays of the hand are negative for fracture or dislocation. Finger splint was applied by it technician and checked by me for support and pain. Disposition - Disposition Referrals: Neha Oshea MD [Staff Provider] - Disposition: HOME/ ROUTINE Disposition Time: 08:38 Condition: STABLE Additional Instructions: Follow up with the Hand doctor withiin 3-5 days if pain continues, Return if worsened Prescriptions: Ibuprofen [Motrin] 600 mg PO TID #21 tab Instructions: Hand Pain Forms: Work Excuse - Clinical Impression Clinical Impression: Hand contusion
[2017-08-30 07:56] VITALS: BP 148/90; PULSE 76; RESP 18; TEMP 98.6; O2SAT 100
--- NOTE | 2017-08-30 10:00 | RAD ---
PROCEDURE: Left Hand Radiographs. HISTORY: PAIN ALONG 5TH METACARPAL COMPARISON: None. FINDINGS: BONES: Bone alignment and mineralization are normal. There is no acute displaced fracture or bone destruction. JOINTS: Normal. SOFT TISSUES: Normal. OTHER FINDINGS: None. IMPRESSION: No acute displaced fracture or dislocation.
== END 2017-08-30 09:13 | disposition home or self-care (01) ==
LOC: C.ER 07:46
DX: S60.222A Contusion of left hand, initial encounter (principal); W22.8XXA Striking against or struck by other objects, initial encounter; Y93.68 Activity, volleyball (beach) (court)

== ENCOUNTER 2017-09-14 12:37 | Emergency (ER) | payer OTHER ==
[2017-09-14 12:38] VITALS: BMI 22.6
[2017-09-14 12:45] VITALS: BP 159/94; PULSE 85; RESP 18; TEMP 97.9; O2SAT 100
--- NOTE | 2017-09-14 12:59 | C.PDOC ---
History Of Present Illness 32 y/o female,employee at [employer], presents to the ER complaining of left hand pain which began after she slipped on a wet floor and fell on her left arm. Patient states that she had a hand injury in the left hand 2 weeks ago and the pain feels worse now. Denies having other injuries, weakness, and numbness. Time Seen by Provider: 09/14/17 12:55 Chief Complaint (Nursing): Upper Extremity Problem/Injury History Per: Patient History/Exam Limitations: no limitations Onset/Duration Of Symptoms: Hrs Current Symptoms Are (Timing): Still Present Severity: Moderate Past Medical History Reviewed: Historical Data, Nursing Documentation, Vital Signs Vital Signs: Last Vital Signs Temp 97.9 F 09/14/17 12:42 Pulse 85 09/14/17 12:42 Resp 18 09/14/17 12:42 BP 159/94 H 09/14/17 12:42 Pulse Ox 100 09/14/17 14:01 - Medical History PMH: Anemia, Anxiety, Gastritis Denies: Chronic Kidney Disease Surgical History: Endoscopy Denies: Pacemaker Family History: Denies: [place], CAD - Social History Hx Tobacco Use: No Hx Alcohol Use: Yes (Socially) Hx Substance Use: No - Immunization History Hx Tetanus Toxoid Vaccination: No Hx Influenza Vaccination: Yes Hx Pneumococcal Vaccination: No Review Of Systems Except As Marked, All Systems Reviewed And Found Negative. Musculoskeletal: Positive for: Hand Pain (left hand pain) Neurological: Negative for: Weakness, Numbness Physical Exam - Physical Exam Appears: Non-toxic, No Acute Distress Skin: Normal Color, Warm, Dry Head: Atraumatic, Normacephalic Eye(s): bilateral: Normal Inspection Nose: Normal Oral Mucosa: Moist Neck: Supple Chest: Symmetrical Cardiovascular: Rhythm Regular Respiratory: Normal Breath Sounds, No Rales, No Rhonchi, No Wheezing Extremity: Normal ROM (left wrist, left hand, left arm), Tenderness (tenderness to palm of left hand; no tenderness to shoulder and elbow), No Deformity, No Swelling Neurological/Psych: Oriented x3, Normal Speech Gait: Steady ED Course And Treatment O2 Sat by Pulse Oximetry: 100 (RA) Pulse Ox Interpretation: Normal - Other Rad X-Ray- Left Hand X-Ray: Viewed By Me, Read By Radiologist Interpretation: PROCEDURE: Left Hand Radiographs. HISTORY: pain s.p fall. COMPARISON: None. FINDINGS: BONES: No acute fracture. JOINTS: Unremarkable. SOFT TISSUES: Normal. OTHER FINDINGS: None. IMPRESSION: No demonstrated fracture or dislocation. Medical Decision Making Medical Decision Making: Impression: Left Hand Contusion Plan: * Motrin PO * X-Ray- Left Hand Progress: X-Ray- Left Hand is negative for fracture. Arm sling applied. Patient has been discharged and instructed to follow up with orthopedic if pain persists for more than 1 week. Disposition Counseled Patient/Family Regarding: Studies Performed, Diagnosis, Need For Followup - Disposition Referrals: Neha Oshea MD [Staff Provider] - Rui Wharton MD [Staff Provider] - Disposition: HOME/ ROUTINE Disposition Time: 13:13 Condition: STABLE Additional Instructions: Your xray was normal, no fracture. Please apply ice to area 15 minutes three times a day. Take Motrin as needed for pain every 6 hours, with food to not upset stomach. Follow up with orthopedic if pain persists over one week. Prescriptions: Ibuprofen [Motrin] 600 mg PO Q8 #30 tab Instructions: Contusion (DC) Forms: [facility] (Yakut) - POA Present On Arrival: None - Clinical Impression Clinical Impression: Hand contusion - PA / PASTRY ASSISTANT / Resident Statement MD/DO has reviewed & agrees with the documentation as recorded. - Scribe Statement The provider has reviewed the documentation as recorded by the Bethanyibe Germaine Land Provider Attestation All medical record entries made by the Scribe were at my direction and personally dictated by me. I have reviewed the chart and agree that the record accurately reflects my personal performance of the history, physical exam, medical decision making, and the department course for this patient. I have also personally directed, reviewed, and agree with the discharge instructions and disposition.
--- NOTE | 2017-09-14 13:20 | RAD ---
PROCEDURE: Left Hand Radiographs. HISTORY: pain s.p fall COMPARISON: None. FINDINGS: BONES: No acute fracture. JOINTS: Unremarkable. SOFT TISSUES: Normal. OTHER FINDINGS: None. IMPRESSION: No demonstrated fracture or dislocation.
== END 2017-09-14 13:27 | disposition home or self-care (01) ==
LOC: C.ER 12:37
DX: S60.222A Contusion of left hand, initial encounter (principal); W01.0XXA Fall on same level from slipping, tripping and stumbling without subsequent striking against object, initial encounter

== ENCOUNTER 2018-03-17 07:37 | Outpatient (CLI) | payer OTHER | END 2018-03-17 07:38 | disposition home or self-care (01) | LOC: C.USIC 07:37 ==

== ENCOUNTER 2018-05-25 16:09 | Emergency (ER) | payer OTHER ==
[2018-05-25 16:10] VITALS: BMI 22.6
[2018-05-25 16:16] VITALS: PULSE 92
[2018-05-25] MEDS ORDERED: Tdap Vaccine 0.5 ml Vial (10-64 yrs) IM ONE ×2 (16:22→16:36)
[2018-05-25] MEDS ORDERED: Bacitracin 500 Units/gm Oint Foilpak UD ONE (16:56)
[2018-05-25] MEDS ORDERED: Bacitracin 500 Units/gm Oint Foilpak UD TOP STA (17:00)
--- NOTE | 2018-05-25 17:03 | C.PDOC ---
History Of Present Illness 33 y/o female presents to the ED for evaluation of injuries s/p fall yesterday. Patient admits she tripped and fell, attempting to break the fall with both hands. She is now complaining of pain to the right knee and left elbow. She denies any head injury or LOC. Otherwise patient denies any numbness, weakness, paresthesias, or other injury. Time Seen by Provider: 05/25/18 16:19 Chief Complaint (Nursing): Lower Extremity Problem/Injury History Per: Patient History/Exam Limitations: no limitations Onset/Duration Of Symptoms: Days (x 1) Current Symptoms Are (Timing): Still Present - Knee Description Of Injury: Fell Past Medical History Reviewed: Historical Data, Nursing Documentation, Vital Signs Vital Signs: Last Vital Signs Temp 98.3 F 05/25/18 16:11 Pulse 92 H 05/25/18 16:11 Resp 18 05/25/18 16:11 BP 150/88 05/25/18 16:11 Pulse Ox 99 05/25/18 16:11 - Medical History PMH: Anemia, Anxiety, Gastritis, Chronic Kidney Disease Surgical History: Endoscopy Denies: Pacemaker Family History: Denies: [place], CAD - Social History Hx Tobacco Use: No Hx Alcohol Use: Yes Hx Substance Use: No - Immunization History Hx Tetanus Toxoid Vaccination: No Hx Influenza Vaccination: Yes Hx Pneumococcal Vaccination: No Review Of Systems Constitutional: Negative for: Fever Cardiovascular: Negative for: Chest Pain Respiratory: Negative for: Shortness of Breath Gastrointestinal: Negative for: Nausea, Vomiting Musculoskeletal: Positive for: Arm Pain (left elbow), Leg Pain (right knee). Negative for: Back Pain Skin: Positive for: Lesions (+ abrasions) Neurological: Negative for: Weakness, Numbness, Headache, Dizziness Physical Exam - Physical Exam Appears: Non-toxic, No Acute Distress Skin: Normal Color, Warm, Dry Head: Atraumatic, Normacephalic Eye(s): bilateral: Normal Inspection, PERRL, EOMI Oral Mucosa: Moist Neck: Normal ROM Chest: Symmetrical Respiratory: No Accessory Muscle Use, Other (No respiratory distress) Extremity: Other (Right hand with small superficial abrasion to palmar aspect; Left elbow with abrasion, tenderness, and swelling; Large abrasion noted with right knee with ecchymosis and swelling) Extremity: Right: Painful To Bear Weight, Other (Decreased ROM secondary to pain) Pulses: Left Dorsalis Pedis: Normal, Right Dorsalis Pedis: Normal Neurological/Psych: Oriented x3, Normal Speech, Normal Motor, Normal Sensation ED Course And Treatment O2 Sat by Pulse Oximetry: 99 (RA) Pulse Ox Interpretation: Normal - Other Rad Right Knee XR X-Ray: Read By Radiologist Interpretation: Accession No. : [id number]. Patient Name / ID : KEISHA VELAZQUEZ / [id number]. Exam Date : 05/25/2018 16:27:33 ( Approved ). Study Comment : Sex / Age : F / 33Y. Creator : Hannah Harvey MD. Dictator : Hannah Harvey MD. Financial Operations Consultant : Magnet Valve Assembler : Hannah Harvey MD. Approver2 : Report Date : 05/25/2018 17:51:36. My Comment : . PROCEDURE: Right Knee Radiographs. HISTORY: Fall. COMPARISON: None available. FINDINGS: BONES: No acute displaced fracture. JOINTS: No dislocation. JOINT EFFUSION: No significant joint effusion. OTHER FINDINGS: Soft tissue swelling. IMPRESSION: No acute displaced fracture, dislocation, or significant joint effusion identified. If symptoms persist, or if there is continued clinical concern, x-ray follow-up in 7-10 days should be considered. Left Elbow XR X-Ray: Read By Radiologist Interpretation: Accession No. : [id number]. Patient Name / ID : KEISHA VELAZQUEZ / [id number]. Exam Date : 05/25/2018 16:28:31 ( Approved ). Study Comment : Sex / Age : F / 33Y. Creator : Hannah Harvey MD. Dictator : Hannah Harvey MD. Financial Operations Consultant : Magnet Valve Assembler : Hannah Harvey MD. Approver2 : Report Date : 05/25/2018 17:54:07. My Comment : . PROCEDURE: Radiographs of the left elbow. HISTORY: fall. COMPARISON: None available. FINDINGS: BONES: Nonspecific 2 mm calcification or ossification posterior to the olecranon on lateral view. Osseous structures appear otherwise unremarkable without acute displaced fracture identified. JOINTS: No dislocation. SOFT TISSUES: Unremarkable. No evidence of radiopaque foreign body. JOINT EFFUSION: No significant joint effusion. OTHER FINDINGS: None. IMPRESSION: Nonspecific 2 mm calcification or ossification posterior to the olecranon on lateral view. Osseous structures appear otherwise unremarkable without acute displaced fracture identified. High clinical index of suspicion for occult fracture, suggest further evaluation with cross-sectional imaging. Otherwise if symptoms persist, repeat radiographs in 7-10 days may be considered. Progress Note: 600 mg PO Motrin given for pain control. X-rays taken, showing no obvious fracture. Results discussed with patient. Bacitracin and wound dressings applied. Knee immobilizer placed to right knee and patient instructed on crutch use. Tetanus booster updated. Patient is stable for discharge home, referred to ortho for follow up. Disposition - Disposition Referrals: Chrissy Dominguez MD [Staff Provider] - Disposition: HOME/ ROUTINE Disposition Time: 17:01 Condition: STABLE Additional Instructions: Follow up with Orthopedist within 1-2 days. Return to ED if feel worse. Prescriptions: Bacitracin OINT 1 applic TP TID #45 g Ibuprofen [Motrin Tab] 600 mg PO Q8 #30 tab Instructions: Skin Abrasions, Knee Immobilizer (DC), Contusion (DC) Forms: [facility] (Montserratian), Work Excuse - Clinical Impression Clinical Impression: Knee contusion, Elbow contusion, Multiple abrasions - PA / YACHT MASTER / Resident Statement MD/DO has reviewed & agrees with the documentation as recorded. - Scribe Statement The provider has reviewed the documentation as recorded by the Scribe Yen Rincon All medical record entries made by the Scribe were at my direction and personally dictated by me. I have reviewed the chart and agree that the record accurately reflects my personal performance of the history, physical exam, medical decision making, and the department course for this patient. I have also personally directed, reviewed, and agree with the discharge instructions and disposition.
[2018-05-25 17:18] VITALS: BP 147/98; RESP 16; TEMP 98.8
--- NOTE | 2018-05-25 17:55 | RAD ---
PROCEDURE: Right Knee Radiographs. HISTORY: Fall COMPARISON: None available. FINDINGS: BONES: No acute displaced fracture. JOINTS: No dislocation. JOINT EFFUSION: No significant joint effusion. OTHER FINDINGS: Soft tissue swelling. IMPRESSION: No acute displaced fracture, dislocation, or significant joint effusion identified. If symptoms persist, or if there is continued clinical concern, x-ray follow-up in 7-10 days should be considered.
--- NOTE | 2018-05-25 17:57 | RAD ---
PROCEDURE: Radiographs of the left elbow. HISTORY: fall COMPARISON: None available FINDINGS: BONES: Nonspecific 2 mm calcification or ossification posterior to the olecranon on lateral view. Osseous structures appear otherwise unremarkable without acute displaced fracture identified. JOINTS: No dislocation. SOFT TISSUES: Unremarkable. No evidence of radiopaque foreign body. JOINT EFFUSION: No significant joint effusion. OTHER FINDINGS: None IMPRESSION: Nonspecific 2 mm calcification or ossification posterior to the olecranon on lateral view. Osseous structures appear otherwise unremarkable without acute displaced fracture identified. High clinical index of suspicion for occult fracture, suggest further evaluation with cross-sectional imaging. Otherwise if symptoms persist, repeat radiographs in 7-10 days may be considered.
[2018-05-25 18:02] VITALS: O2SAT 99
== END 2018-05-25 17:33 | disposition home or self-care (01) ==
LOC: C.ER 16:09
DX: S80.01XA Contusion of right knee, initial encounter (principal); S50.02XA Contusion of left elbow, initial encounter; S60.511A Abrasion of right hand, initial encounter; S80.211A Abrasion, right knee, initial encounter; W01.0XXA Fall on same level from slipping, tripping and stumbling without subsequent striking against object, initial encounter

== ENCOUNTER 2018-05-30 12:09 | Outpatient (CLI) | payer OTHER | END 2018-05-30 12:10 | disposition home or self-care (01) | LOC: C.MRIC 12:09 | DX: M25.561 Pain in right knee (principal) ==

== ENCOUNTER 2018-06-13 08:06 | Outpatient (CLI) | payer OTHER | END 2018-06-13 08:07 | disposition home or self-care (01) | LOC: C.USIC 08:06 | DX: N60.09 Solitary cyst of unspecified breast (principal); E04.1 Nontoxic single thyroid nodule; D64.9 Anemia, unspecified; Z00.00 Encounter for general adult medical examination without abnormal findings ==

== ENCOUNTER 2018-06-15 13:05 | Outpatient (CLI) | payer OTHER | END 2018-06-15 13:06 | disposition home or self-care (01) | LOC: C.USIC 13:06 ==